=== PATIENT | female | born 1980 | race Two or more races ===

== ENCOUNTER 2018-05-12 19:51 | Inpatient (IN) | payer OTHER ==
[~2018-05-12] VITALS: Ht 165.1 cm; Wt 57.4 kg
--- NOTE | 2018-05-12 19:55 | NUR ---
PT AMBULATORY TO ER BED 16. FEELS LIKE THROAT IS SWELLING X 1 MONTH. PT PLACED IN GOWN AND ON [employer]. PT VSS/NAD NOTED/RESP EVEN UNLABORED/SKIN WARM AND DRY/DENIES N-V-D/AFEBRILE/AOX4. AWAITING MD MOREAU.
[2018-05-12] MEDS ORDERED: DEXAMETHASONE SOD PHOSPHATE 10 MG/ML VIAL IV ONE (20:30)
[2018-05-12] MEDS ORDERED: IV NS 0.9% 1,000 ML BAG IV ONE (20:30)
--- NOTE | 2018-05-12 20:45 | NUR ---
PT TO CT VIA WC. VSS.
[2018-05-12] MEDS ORDERED: DEXAMETHASONE SOD PHOSPHATE 10 MG/ML VIAL ONE (20:50)
--- NOTE | 2018-05-12 20:58 | NUR ---
PT BACK FROM CT VIA WC. VSS.
--- NOTE | 2018-05-12 21:00 | NUR ---
URINE SPECIMEN OBTAINED AND SENT TO THE LAB.
--- NOTE | 2018-05-12 21:05 | NUR ---
18G IV TO L AC X 1 ATTEMPT USING ASEPTIC TECHNIQUE, BLOOD HANDED OVER TO THE LAB AT THE BEDSIDE. IV FLUSHES EASILY WITH NS, NO S/S INFILTRATION NOTED AT THIS TIME.
[2018-05-12 21:12] LABS: BASOPHILS % (AUTO) 0.3 % (0.0-2.0); EOSINOPHILS % (AUTO) 0.4 % (0.0-6.0); HEMATOCRIT 33 % (33-45); HEMOGLOBIN 11.3 g/dL (11.5-14.8); LYMPHOCYTES # (AUTO) 1.7 /CMM (0.8-4.8); LYMPHOCYTES % (AUTO) 15.3 % (20.0-44.0); MEAN CORPUSCULAR HGB CONC 34 g/dl (31.0-36.0); MEAN CORPUSCULAR VOLUME 81 fL (82-100); MONOCYTES # (AUTO) 0.8 /CMM (0.1-1.30); MONOCYTES % (AUTO) 7.6 % (2.0-12.0); NEUTROPHILS # (AUTO) 8.5 /CMM (1.8-8.9); NEUTROPHILS % (AUTO) 76.4 % (43.0-81.0); PLATELET COUNT (AUTO) 295 /CMM (150-450); RDW COEFFICIENT OF VARIATION 12.4 (11.5-15.0); RED BLOOD CELL COUNT(AUTO) 4.07 MIL/uL (4.0-5.2)
[2018-05-12 21:23] LABS: CALCIUM, SERUM 9.9 mg/dL (8.5-10.1); CREATININE 0.8 mg/dL (0.6-1.3); POTASSIUM 4.1 mmol/L (3.5-5.1)
[2018-05-12 21:29] LABS: ALBUMIN 3.4 g/dL (3.4-5.0); BILIRUBIN,TOTAL 0.4 mg/dL (0.2-1.0); TOTAL PROTEIN, SERUM 8.6 g/dL (6.4-8.2)
[2018-05-12] MEDS ORDERED: KETOROLAC TROMETHAMINE INJ 30 MG/ML VIAL IV ONE (22:00)
[2018-05-12] MEDS ORDERED: KETOROLAC TROMETHAMINE 15 MG/ML VIAL ONE (22:12)
[2018-05-12 22:14] LABS: THYROID STIMULATING HORMONE 0.007 uIU/mL (0.358-3.74)
[2018-05-12] MEDS ORDERED: PROPRANOLOL LA 60 MG CAP.SA.24H PO STA (22:34)
[2018-05-12] MEDS ORDERED: AZIT250T13 PO (22:44)
[2018-05-12] MEDS ORDERED: FLUT16SP BNOSTRILS (22:44)
--- NOTE | 2018-05-12 22:50 | NUR ---
PT BEING ADMIT TO [facility] BY [facility] FOR HYPERTHYROID. REPORT GIVEN TO SONIA MATHEWS FOR NADIA.
[2018-05-12] MEDS ORDERED: IV NS 0.9% 1,000 ML IV PRN (22:57)
[2018-05-12] MEDS ORDERED: ONDANSETRON HCL/PF 4 MG/2 ML VIAL IVP PRN (23:00)
[2018-05-12] MEDS ORDERED: ACETAMINOPHEN 325 MG TABLET PO PRN (23:00)
[2018-05-12] MEDS ORDERED: MORPHINE SULFATE INJ 2 MG/ML DISP.SYRIN IV PRN (23:00)
[2018-05-12] MEDS ORDERED: TEMAZEPAM 15 MG CAPSULE PO PRN (23:00)
[2018-05-12] MEDS ORDERED: MAG HYDROX/AL HYDROX/SIMETH 30 ML UDC PO PRN (23:00)
[2018-05-12] MEDS ORDERED: MAGNESIUM HYDROXIDE 30 ML UDC PO PRN (23:00)
[2018-05-12] MEDS ORDERED: PROPRANOLOL LA 60 MG CAP.SA.24H PO ONE (23:01)
--- NOTE | 2018-05-12 23:30 | NUR ---
MS/RN NOTES RECEIVED PT. FROM ER VIA WHEELCHAIR. PT. IS AWAKE, ALERT AND ORIENTED X4. BREATHING EVEN AND UNLABORED ON ROOM AIR. NO SOB, RESPIRATORY DISTRESS OR COMPLAINTS OF PAIN NOTED AT THIS TIME. ORIENTED PT. TO ROOM. PT. WITH LEFT AC 18 GAUGE IV SALINE LOCK PRESENT, PATENT AND INTACT. BED LOCKED AND IN LOWEST POSITION, SIDE RAILS UP X2, CALL LIGHT WITHIN REACH, WILL CONTINUE TO MONITOR.
--- NOTE | 2018-05-12 23:35 | NUR ---
PT TRANSPORTED VIA TO [facility] WITH EMT. VSS.
[2018-05-12 23:40] VITALS: BP 108/58
--- NOTE | 2018-05-13 06:28 | NUR ---
MS/RN NOTES PT. IS LYING IN BED RESTING. BREATHING EVEN AND UNLABORED ON ROOM AIR. NO SOB, RESPIRATORY DISTRESS OR COMPLAINTS OF PAIN NOTED AT THIS TIME. PT. WITH LEFT AC 18 GAUGE PERIPHERAL IV PRESENT, PATENT AND INTACT ADMINISTERING TO PT. NS @ 75ML/HR. ALL PT. NEEDS MET. BED LOCKED AND IN LOWEST POSITION, SIDE RAILS UP X2, CALL LIGHT WITHIN REACH, WILL ENDORSE TO DAYSHIFT NURSE FOR CONTINUITY OF CARE.
[2018-05-13 07:12] LABS: CALCIUM, SERUM 8.7 mg/dL (8.5-10.1); CREATININE 0.9 mg/dL (0.6-1.3); MAGNESIUM 2.3 mg/dL (1.8-2.4); PHOSPHORUS 3.5 mg/dL (2.5-4.9)
[2018-05-13 07:15] LABS: BASOPHILS % (AUTO) 0.2 % (0.0-2.0); HEMATOCRIT 34 % (33-45); HEMOGLOBIN 11.2 g/dL (11.5-14.8); LYMPHOCYTES # (AUTO) 0.6 /CMM (0.8-4.8); LYMPHOCYTES % (AUTO) 11.4 % (20.0-44.0); MEAN CORPUSCULAR HGB CONC 33 g/dl (31.0-36.0); MEAN CORPUSCULAR VOLUME 85 fL (82-100); MONOCYTES # (AUTO) 0.1 /CMM (0.1-1.30); MONOCYTES % (AUTO) 1.4 % (2.0-12.0); NEUTROPHILS # (AUTO) 4.4 /CMM (1.8-8.9); PLATELET COUNT (AUTO) 296 /CMM (150-450); RED BLOOD CELL COUNT(AUTO) 3.98 MIL/uL (4.0-5.2); WHITE BLOOD COUNT (AUTO) 5.1 K/uL (4.3-11.0)
--- NOTE | 2018-05-13 07:17 | NUR ---
RN OPENING NOTES RECEIVED PATIENT IN BED RESTING. NO ACUTE DISTRESS, NO SOB, NO COMPLAINTS OF PAIN OR DISCOMFORT AT THIS TIME. IV SITE INTACT AND PATENT. KEPT PATIENT SAFE AND COMFORTABLE. BED IN LOW/LOCKED POSITION, SIDERAILS UPX2, CALL LIGHT IN REACH. WILL CONTINUE TO MONITOR ACCORDINGLY.
[2018-05-13 08:00] VITALS: BP 98/59
[2018-05-13] MEDS: PANTOPRAZOLE 40 MG TABLET.DR PO SCH (08:04)
[2018-05-13] MEDS: PROPRANOLOL HCL 40 MG TABLET PO SCH ×2 (08:12→21:00)
--- NOTE | 2018-05-13 10:06 | NUR ---
RN NOTES WILLI BRENNAN NP ON BEDSIDE TALKING TO PATIENT. PER WILLI, ADVANCE DIET TOLERATED.
[2018-05-13] MEDS: METHIMAZOLE (5MG) 5 MG TABLET PO SCH (10:42)
[2018-05-13 16:00] VITALS: BP 98/47
--- NOTE | 2018-05-13 18:47 | NUR ---
RN CLOSING NOTES PATIENT IN STABLE CONDITION. ALL NEEDS ATTENDED AND PROVIDED. KEPT PATIENT SAFE AND COMFORTABLE. BED IN LOW/LOCKED POSITION, SIDERAILS UPX2, CALL LIGHT IN REACH. ENDORSED TO NIGHT RN FOR NADIA.
--- NOTE | 2018-05-13 19:30 | NUR ---
MS/RN OPENING NOTES PT RECEIVED AWAKE, FAMILY MEMBERS AT BEDSIDE. A/OX4. ON ROOM AIR, BREATHING EVEN AND UNLABORED. DENIES PAIN, N/V, DYSPHAGIA. "EASIER TO SWALLOW". TOLERATING SOFT DIET, CURRENTLY EATING [place]. APPEARS COMFORTABLE. IV TO LAC PATENT AND INTACT. BED IN LOW/LOCKED POSITION WITH CALL LIGHT IN REACH. SIDE RAILS UPX2. WILL CONTINUE TO MONITOR
[2018-05-13 20:00] VITALS: BP 98/60
[2018-05-13 20:22] VITALS: BP 98/60
[2018-05-13 20:55] LABS: IRON, SERUM 37 ug/dl (50-175); TOTAL IRON BINDING CAPACITY 225 ug/dl (250-450)
[2018-05-13 21:03] LABS: FERRITIN 164 ng/mL (8-388)
[2018-05-13 21:45] VITALS: BP 80/42
[2018-05-13 23:30] VITALS: BP 86/54
--- NOTE | 2018-05-13 23:45 | NUR ---
MS/RN NOTES PT NOTED WITH DECREASED BP 80/42, HR 77 @ 2145. PT ASYMPTOMATIC. STATES SHE USUALLY HAS LOW BP. RECHECKED AT 2330, BP 86/54, HR 73. ASLEEP BUT EASILY AROUSABLE. PLACED IN [place]. WILL REASSESS
--- NOTE | 2018-05-14 07:01 | NUR ---
MS/RN CLOSING NOTES PT ASLEEP, AROUSABLE TO NAME. A/OX4. ON ROOM AIR, BREATHING EVEN AND UNLABORED. DENIES SOB OR PAIN AT THIS TIME. SLEPT WELL DURING SHIFT. IV TO LAC PATENT AND INTACT. NO SIGNIFICANT CHANGES OVERNIGHT. ALL NEEDS MET. KEPT PT COMFORTABLE DURING SHIFT. BED IN LOW/LOCKED POSITION WITH CALL LIGHT IN REACH. SIDE RAILS UPX2. WILL ENDORSE TO DAY SHIFT RN ANDIA.
--- NOTE | 2018-05-14 07:31 | NUR ---
MS RN NOTES PATIENT RECEIVED RESTING INSIDE ROOM, AWAKE, ALERT AND ORIENTED X 4. VERBALLY RESPONSIVE AND RESPONDS TO VERBAL AND TACTILE STIMULI. PATIENT BREATHING EVEN AND UNLABORED. NO SOB OR ACUTE DISTRESS NOTED. PATIENT DENIES ANY PAIN BUT VERBALIZES DISCOMFORT ON THROAT WITH SWALLOWING. VERBALIZES THAT DISCOMFORT IS TOLERABLE. IV SITE INTACT AND PATENT, NO SWELLING OR BLEEDING NOTED ON SITE. WILL CONTINUE TO MONITOR. BED LOCKED AND IN LOW POSITION. BILATERAL UPPER SIDE RAILS UP AND LOCKED. CALL LIGHT WITHIN EASY REACH
[2018-05-14 08:00] VITALS: BP 99/57
[2018-05-14] MEDS: PROPRANOLOL HCL 40 MG TABLET PO SCH ×2 (08:40→21:00)
[2018-05-14] MEDS: PANTOPRAZOLE 40 MG TABLET.DR PO SCH (08:41)
[2018-05-14] MEDS: METHIMAZOLE (5MG) 5 MG TABLET PO SCH (08:41)
[2018-05-14 16:07] VITALS: BP 96/55
--- NOTE | 2018-05-14 17:24 | NUR ---
MS RN NOTES PATIENT PROVIDED WITH REQUESTED CD OF THYROID ULTRASOUND AND NECK CT, PROVIDED BY RADIOLOGY. WILL CONTINUE TO MONITOR
--- NOTE | 2018-05-14 18:50 | NUR ---
MS RN NOTES PATIENT RESTING INSIDE ROOM, AWAKE, ALERT AND ORIENTED. VERBALLY RESPONSIVE AND RESPONDS TO VERBAL AND TACTILE STIMULI. BREATHING EVEN AND UNLABORED. NO SOB OR ACUTE DISTRESS NOTED. PATIENT CALM AND RELAXED. NO CHANGES IN LOC NOTED. PATIENT AFEBRILE, SKIN DRY AND WARM TO TOUCH. IV SITE INTACT AND PATENT. NO SWELLING OR BLEEDING NOTED. WILL ENDORSE TO INCOMING SHIFT FOR NADIA. BED LOCKED AND IN LOW POSITION. BILATERAL UPPER SIDE RAILS UP AND LOCKED. CALL LIGHT WITHIN EASY REACH
--- NOTE | 2018-05-14 19:44 | NUR ---
MS RN NOTES Patient received in bed, awake and verbally responsive. Family members at bedside. No complaints of pain or any type of discomfort. Safety measures in place. Bed in lowest position with call light within reach. Will continue to monitor and assess patient
[2018-05-14 20:00] VITALS: BP 95/63
[2018-05-14] MEDS: FERROUS SULFATE (325 MG) 325 MG/TAB TABLET PO SCH (20:23)
--- NOTE | 2018-05-14 21:49 | NUR ---
MS RN - NON-ADMIN NOTES HOLD Inderal per parameters - BP 89/56 P 64 Patient is asymptomatic Will re-check blood pressure in an hour
--- NOTE | 2018-05-15 05:53 | NUR ---
MS RN CLOSING NOTES Patient in bed, resting, easily arousable. Stable with no complaints of any pain throughout shift. Not in any type of distress. Possible discharge today. Follow up with analysis director (outpatient) and thyroid scan uptake (outpatient) per Dr. Payton. All needs provided and met. Questions and concerns addressed. Will endorse to update patient with Thyroidgllobulin and A1C result. Safety measures in place. Bed in lowest position with call light within reach. Will continue to monitor patient and will endorse to oncoming shift nurse
--- NOTE | 2018-05-15 07:33 | NUR ---
MS RN NOTES PATIENT RESTING INSIDE ROOM, AWAKE, ALERT AND ORIENTED. VERBALLY RESPONSIVE AND RESPONDS TO VERBAL AND TACTILE STIMULI. PATIENT BREATHING EVEN AND UNLABORED. NO SOB OR ACUTE DISTRESS NOTED. PATIENT CALM AND RELAXED. NO CHANGES IN LOC NOTED AT THIS TIME. PATIENT DENIES ANY PAIN. IV SITE INTACT AND PATENT. WILL CONTINUE TO MONITOR. BED LOCKED AND IN LOW POSITION. BILATERAL UPPER SIDE RAILS UP AND LOCKED. CALL LIGHT WITHIN EASY REACH
[2018-05-15 08:00] VITALS: BP 89/51
[2018-05-15 08:33] VITALS: BP 89/51
[2018-05-15] MEDS: FERROUS SULFATE (325 MG) 325 MG/TAB TABLET PO SCH (08:33)
[2018-05-15] MEDS: METHIMAZOLE (5MG) 5 MG TABLET PO SCH (08:33)
[2018-05-15] MEDS: PROPRANOLOL HCL 40 MG TABLET PO SCH (08:33)
[2018-05-15] MEDS: PANTOPRAZOLE 40 MG TABLET.DR PO SCH (08:33)
[2018-05-15] MEDS ORDERED: CYANOCOBALAMIN 500 MCG TABLET PO SCH (09:00)
[2018-05-15] MEDS ORDERED: FERR325T28 PO (10:24)
[2018-05-15] MEDS ORDERED: PROP40TA7 PO (10:24)
[2018-05-15] MEDS ORDERED: METH5TAB70 PO (10:24)
--- NOTE | 2018-05-15 12:56 | NUR ---
MS BOOT MAKER NOTES PATIENT SEEN AND EXAMINED BY DR. CHANEY, WITH ORDER FOR PATIENT TO DISCHARGE HOME. PATIENT AWARE AND VERBALIZED UNDERSTANDING. DISCHARGE TEACHING AND EDUCATION PROVIDED AND PATIENT VERBALIZED UNDERSTANDING. ALL BELONGINGS COMPLETE, NO REPORT OF MISSING INVENTORY. IV REMOVED WITH MINIMAL BLEEDING NOTED, PRESSURE DRESSING APPLIED TO SITE AND SECURED. MEDICATION PRESCRIPTION GIVEN TO PATIENT. PATIENT LEFT UNIT AT 1245 IN STABLE CONDITION. AMBULATORY, NO CHANGES IN LOC NOTED. BREATHING EVEN AND UNLABORED. NO SOB OR ACUTE DISTRESS. DENIES ANY PAIN OR DISCOMFORT. PATIENT ACCOMPANIED TO [employer], LEFT VIA PRIVATE CAR WITH FAMILY. MD AWARE OF DISCHARGE.
== END 2018-05-15 12:45 | disposition home or self-care (01) | DRG 424 ==
LOC: ER 19:57 → MED 23:25
PROVIDERS: ADMIT Nurse Practitioner Acute Care; ATTEND Nurse Practitioner Acute Care
DX: D34 Benign neoplasm of thyroid gland (principal); D51.3 Other dietary vitamin B12 deficiency anemia; R13.10 Dysphagia, unspecified; F41.9 Anxiety disorder, unspecified; R00.0 Tachycardia, unspecified; E05.20 Thyrotoxicosis with toxic multinodular goiter without thyrotoxic crisis or storm; D50.9 Iron deficiency anemia, unspecified
CPT/HCPCS: 36415; 70490-TC; 76536-TC; 80048-TC; 80053-TC; 82728-TC; 82746; 83540-TC; 83735-TC; 84100-TC; 84439-TC; 84443-TC; 84481; 84703-TC; 85025-TC; 87081-TC; A4606; J1100; J1885; J7030; Z7610